=== PATIENT | male | born 1945 | race Caucasian/White ===

== ENCOUNTER 2018-04-10 12:39 | Emergency (ER) | payer MEDICARE, BC ==
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
[2018-04-10] MEDS: LIDOCAINE 1%/EPINEPHRINE 20ML VIAL IJ ONE (13:58)
[2018-04-10] MEDS: NEOMYCIN/BACITRACIN/POLYMYXINB 1 EACH OINT.PACK TP ONE (13:59)
[2018-04-10] MEDS: DIPH,PERTUSS(ACELL),TET VAC/PF 0.5 ML DISP.SYRIN IM ONE (13:59)
[2018-04-10 14:06] VITALS: BP 139/61
== END 2018-04-10 14:04 | disposition home or self-care (01) ==
LOC: ED 12:39
DX: S81.811A Laceration without foreign body, right lower leg, initial encounter (principal); V89.2XXA Person injured in unspecified motor-vehicle accident, traffic, initial encounter; W19.XXXA Unspecified fall, initial encounter; Y92.9 Unspecified place or not applicable; Y93.9 Activity, unspecified; Y99.9 Unspecified external cause status
CPT/HCPCS: 12001; 90471; 90715; 96372